=== PATIENT | female | born 1990 | race African-American/Black ===

== ENCOUNTER 2019-06-14 18:31 | Emergency (ER) | payer SELFPAY ==
[~2019-06-14] VITALS: Ht 165.1 cm; Wt 70.0 kg
[2019-06-14 18:36] VITALS: BP 111/72
== END 2019-06-14 19:27 | disposition left against medical advice (07) ==
LOC: ER 18:31
DX: Z53.21 Procedure and treatment not carried out due to patient leaving prior to being seen by health care provider (principal)